=== PATIENT | male | born 1975 | race Caucasian/White ===

== ENCOUNTER → 2022-12-19 | Outpatient (CLI) | payer BC ==
[2022-12-19 14:17] LABS: HCT 46.4 % (39.6-50.0); HGB 15.5 g/dL (13.0-17.0); MCH 29.6 pg (27.0-32.0); MCHC 33.4 g/dL (32.0-37.0); MCV 88.5 fL (80.0-97.0); Mean Platelet Volume 11.2 fL (9.5-12.2); NRBC Per 100 WBC 0 /100 WBCS (0.0-0.0); Platelet Count 199 X 10*3/uL (140-440); RBC 5.24 X 10*6/uL (4.40-5.60); RDW 12.1 % (11.5-14.5); WBC 5.85 X 10*3/uL (4.50-10.00)
[2022-12-19 14:25] LABS: ALT 25 U/L (10-49); AST 22 U/L (14-35); Albumin 4.6 g/dL (3.8-4.9); Albumin/Globulin Ratio 1.54 (1.60-3.17); Alkaline Phosphatase 67 U/L (41-126); BUN/Creat Ratio 14.32 Ratio (12.00-20.00); Blood Urea Nitrogen 12.5 mg/dL (9.0-27.0); Calcium 9.5 mg/dL (8.7-10.3); Carbon Dioxide 30.1 mmol/L (20.0-27.5); Chloride 101 mmol/L (96-109); Chol/HDL Ratio 5.23 Ratio; Glucose 105 mg/dL (70-110); Non-African American GFR(CKD) 102.6 (60.0-200.0); Potassium 4.7 mmol/L (3.5-5.5); Sodium 139 mmol/L (135-145); Total Protein 7.5 g/dL (6.2-8.2); VLDL Calculation 17.42 mg/dL (5.00-40.00)
== END | disposition home or self-care (01) ==
LOC: LABWHC1 08:16
PROVIDERS: ATTEND Family Medicine
DX: Z00.00 Encounter for general adult medical examination without abnormal findings (principal)
CPT/HCPCS: 36415; 80053; 80061; 85027

== ENCOUNTER → 2023-12-25 | Outpatient (CLI) | payer BC ==
[2023-12-25 13:01] LABS: HCT 45.8 % (39.6-50.0); HGB 15.1 g/dL (13.0-17.0); MCH 29.1 pg (27.0-32.0); MCV 88.2 FL (80.0-97.0); Mean Platelet Volume 11.1 FL (9.5-12.2); NRBC Per 100 WBC 0 X 10*3/uL (0.00-0.01); Platelet Count 186 X 10*3/uL (140-440); RBC 5.19 X 10*6/uL (4.40-5.60); RDW 12.4 % (11.5-14.5); WBC 6.21 X 10*3/uL (4.50-10.00)
[2023-12-25 13:12] LABS: Chol/HDL Ratio 4.89 Ratio; LDL Cholesterol,Calculated 124.7 mg/dL (0.0-131.0); VLDL Calculation 17.68 mg/dL (5.00-40.00)
[2023-12-25 15:19] LABS: ALT 23 U/L (10-49); AST 21 U/L (14-35); Albumin 4.4 g/dL (3.8-4.9); Albumin/Globulin Ratio 1.57 Ratio (1.60-3.17); Alkaline Phosphatase 72 U/L (41-126); BUN/Creat Ratio 14.25 Ratio (12.00-20.00); Blood Urea Nitrogen 11.4 mg/dL (9.0-27.0); Calcium 9.7 mg/dL (8.7-10.3); Carbon Dioxide 27.8 mmol/L (21.6-31.8); Chloride 103 mmol/L (96-109); Globulin 2.8 g/dL (1.6-3.3); Glucose 111 mg/dL (70-110); Potassium 4.7 mmol/L (3.5-5.5); Sodium 141 mmol/L (135-145); Total Bilirubin 0.5 mg/dL (0.3-1.2); Total Protein 7.2 g/dL (6.2-8.2)
== END | disposition home or self-care (01) ==
LOC: LABWHC1 08:13
PROVIDERS: ATTEND Family Medicine
DX: Z00.00 Encounter for general adult medical examination without abnormal findings (principal)
CPT/HCPCS: 36415; 80053; 80061; 85027

== ENCOUNTER 2024-07-31 16:14 | Observation (INO) | payer BC, OTHER ==
--- NOTE | 2024-07-31 17:06 | ED ---
General Adult HPI - General Source: patient, RN notes reviewed Mode of arrival: ambulatory Limitations: no limitations <Shazia Haynes - Last Filed: 07/31/24 17:05> <Feng Carreno - Last Filed: 07/31/24 20:52> <Miguel Juárez - Last Filed: 07/31/24 21:39> - General Chief complaint: Abdominal Pain Stated complaint: Abdominal Pain Time Seen by Provider: 07/31/24 17:05 - History of Present Illness Initial comments: Quick note: 49-year-old male presents to the emergency department for evaluation of right lower quadrant abdominal pain. He notes that has been ongoing for around 2 weeks. He admits to nausea without vomiting. Denies any recent fever, chills. Reports normal bowel movements and urinary habits. (Shazia Haynes) - Related Data Allergies Allergy/AdvReac Type Severity Reaction Status Date / Time No Known Allergies Allergy Verified 07/31/24 17:04 Review of Systems ROS Other: All systems not noted in ROS Statement are negative. <Shazia Haynes - Last Filed: 07/31/24 17:05> ROS Other: All systems not noted in ROS Statement are negative. <Feng Carreno - Last Filed: 07/31/24 20:52> ROS Other: All systems not noted in ROS Statement are negative. <Miguel Juárez - Last Filed: 07/31/24 21:39> ROS Statement: Those systems with pertinent positive or pertinent negative responses have been documented in the HPI. Past Medical History History of Any Multi-Drug Resistant Organisms: None Reported Past Surgical History: Cholecystectomy Past Psychological History: No Psychological Hx Reported Smoking Status: Never smoker Past Alcohol Use History: Occasional Past Drug Use History: None Reported <Shazia Haynes - Last Filed: 07/31/24 17:05> General Exam Limitations: no limitations <Shazia Haynes - Last Filed: 07/31/24 17:05> General appearance: alert, in no apparent distress Head exam: Present: atraumatic, normocephalic Eye exam: Present: normal appearance, PERRL ENT exam: Present: normal exam Neck exam: Present: normal inspection. Absent: tenderness, meningismus Respiratory exam: Present: normal lung sounds bilaterally. Absent: respiratory distress, wheezes Cardiovascular Exam: Present: regular rate, normal rhythm GI/Abdominal exam: Present: soft, tenderness (Right lower quadrant). Absent: distended, guarding Extremities exam: Present: normal inspection, normal capillary refill Neurological exam: Present: alert, oriented X3, CN II-XII intact, normal gait. Absent: motor sensory deficit Psychiatric exam: Present: normal affect, normal mood Skin exam: Present: warm, dry, intact <Feng Carreno - Last Filed: 07/31/24 20:52> - General Exam Comments Initial Comments: Visual Physical Exam Vital signs reviewed General: Well-appearing, nontoxic, no acute distress. Head: Normocephalic, atraumatic Eyes: PERRLA, EOMI ENT: Airway patent Chest: Nonlabored breathing Skin: No visual rash, normal skin tone Neuro: Alert and oriented 3 Musculoskeletal: No gross abnormalities (Shazia Haynes) Course Vital Signs 07/31/24 17:00 Temperature 98.9 F Pulse Rate 107 H Respiratory 18 Rate Blood Pressure 134/84 O2 Sat by Pulse 99 Oximetry Medical Decision Making <Shazia Haynes - Last Filed: 07/31/24 17:05> - Lab Data Result diagrams: 07/31/24 19:26 07/31/24 19:26 <Feng Carreno - Last Filed: 07/31/24 20:52> - Lab Data Result diagrams: 07/31/24 19:26 07/31/24 19:26 <Miguel Juárez - Last Filed: 07/31/24 21:39> - Medical Decision Making Quick note preformed and electronically signed by Shazia Haynes PA-C (Shazia Haynes) Was pt. sent in by a medical professional or institution ([facility], CONTRACT ADMIN, urgent care, hospital, or [facility]...) When possible be specific @ -[No] Did you speak to anyone other than the patient for history (EMS, parent, family, police, friend...)? What history was obtained from this source @ -[No] Did you review nursing and triage notes (agree or disagree)? Why? @ -[I reviewed and agree with nursing and triage notes] Were old charts reviewed (outside hosp., previous admission, EMS record, old EKG, old radiological studies, urgent care reports/EKG's, [facility] records)? Report findings @ -[No old charts were reviewed] Differential Abdominal Pain Men: Appendicitis, cholecystitis, diverticulosis, ischemic bowel, pancreatitis, hepatitis, UTI, gastroenteritis, AAA, incarcerated hernia, bowel obstruction, constipation, inflammatory bowel, hepatitis, peptic ulcer disease, splenic infarction, perforated viscus, testicular torsion, this is not meant to be an all-inclusive list EKG interpreted by me (3pts min.). @ -[As above] X-rays interpreted by me (1pt min.). @ -[None done] CT interpreted by me (1pt min.). @ -[None done] U/S interpreted by me (1pt. min.). @ -[None done] What testing was considered but not performed or refused? (CT, X-rays, U/S, labs)? Why? @ -[None] What meds were considered but not given or refused? Why? @ -[None] Did you discuss the management of the patient with other professionals (professionals i.e. , PA, CONTRACT ADMIN, lab, RT, psych nurse, social and human services assistant, brick loader, teacher, special technical operations officer, case loader operator)? Give summary @ -[No] Was smoking cessation discussed for >3mins.? @ -[No] Was critical care preformed (if so, how long)? @ -[No] Were there social determinants of health that impacted care today? How? (Homelessness, low income, unemployed, alcoholism, drug addiction, transportation, low edu. Level, literacy, decrease access to med. care, usp, rehab)? @ -[No] Was there de-escalation of care discussed even if they declined (Discuss DNR or withdrawal of care, Hospice)? DNR status @ -[No] What co-morbidities impacted this encounter? (DM, HTN, Smoking, COPD, CAD, Cancer, CVA, ARF, Chemo, Hep., AIDS, mental health diagnosis, sleep apnea, morbid obesity)? @ -[None] Was patient admitted / discharged? Hospital course, mention meds given and route, prescriptions, significant lab abnormalities, going to OR and other pertinent info. @ -[hospital course] Undiagnosed new problem with uncertain prognosis? @ -[No] Drug Therapy requiring intensive monitoring for toxicity (Heparin, Nitro, Insulin, Cardizem)? @ -[No] Were any procedures done? @ -[No] Diagnosis/symptom? @ -[default] Acute, or Chronic, or Acute on Chronic? @ -[default] Uncomplicated (without systemic symptoms) or Complicated (systemic symptoms)? @ -[default] Side effects of treatment? @ -[No] Exacerbation, Progression, or Severe Exacerbation? @ -[No] Poses a threat to life or bodily function? How? (Chest pain, [place], [place], pneumonia, PE, COPD, DKA, ARF, appy, cholecystitis, CVA, Diverticulitis, Homicidal, Suicidal, threat to staff... and all critical care pts) @ -[No] (Feng Carreno) Patient care signed out to me by previous shift physician, Dr. Carreno., Patient is a 49-year-old male presents emergency department for abdominal pain. Laboratory evaluation obtained. Leukocytosis 11.0 Labs unremarkable. Patient denies any significant comorbidities. Plan at signout was to follow-up with pending CT imaging. CT performed showing uncomplicated acute appendicitis. Patient given antibiotics will be admitted. Case discussed with Dr. Lobo for admission (Miguel Juárez) - Lab Data Lab Results 07/31/24 07/31/24 07/31/24 Range/Units 19:26 19:26 19:26 WBC 11.0 H (3.8-10.6) k/uL RBC 5.32 (4.30-5.90) m/uL Hgb 15.9 (13.0-17.5) gm/dL Hct 47.1 (39.0-53.0) % MCV 88.5 (80.0-100.0) fL MCH 29.9 (25.0-35.0) pg MCHC 33.7 (31.0-37.0) g/dL RDW 12.5 (11.5-15.5) % Plt Count 227 (150-450) k/uL MPV 7.9 Neutrophils % 64 % Lymphocytes % 24 % Monocytes % 9 % Eosinophils % 2 % Basophils % 1 % Neutrophils # 7.0 (1.3-7.7) k/uL Lymphocytes # 2.6 (1.0-4.8) k/uL Monocytes # 0.9 (0-1.0) k/uL Eosinophils # 0.2 (0-0.7) k/uL Basophils # 0.1 (0-0.2) k/uL Sodium 140 (137-145) mmol/L Potassium 3.7 (3.5-5.1) mmol/L Chloride 100 (98-107) mmol/L Carbon Dioxide 29 (22-30) mmol/L Anion Gap 11 mmol/L BUN 12 (9-20) mg/dL Creatinine 0.71 (0.66-1.25) mg/dL Est GFR (CKD-EPI)AfAm >90 (>60 ml/min/1.73 sqM) Est GFR (CKD-EPI)NonAf >90 (>60 ml/min/1.73 sqM) Glucose 92 (74-99) mg/dL Plasma Lactic Acid Mike 1.0 (0.7-2.0) mmol/L Calcium 9.4 (8.4-10.2) mg/dL Total Bilirubin 0.9 (0.2-1.3) mg/dL AST 22 (17-59) U/L ALT 22 (4-49) U/L Alkaline Phosphatase 79 (38-126) U/L Total Protein 8.2 (6.3-8.2) g/dL Albumin 4.8 (3.5-5.0) g/dL Amylase 58 (30-110) U/L Lipase 61 (23-300) U/L Urine Color Urine Appearance (Clear) Urine pH (5.0-8.0) Ur Specific [place] (1.001-1.035) Urine Protein (Negative) Urine Glucose (UA) (Negative) Urine Ketones (Negative) Urine Blood (Negative) Urine Nitrite (Negative) Urine Bilirubin (Negative) Urine Urobilinogen (<2.0) mg/dL Ur Leukocyte Esterase (Negative) 07/31/24 Range/Units 19:59 WBC (3.8-10.6) k/uL RBC (4.30-5.90) m/uL Hgb (13.0-17.5) gm/dL Hct (39.0-53.0) % MCV (80.0-100.0) fL MCH (25.0-35.0) pg MCHC (31.0-37.0) g/dL RDW (11.5-15.5) % Plt Count (150-450) k/uL MPV Neutrophils % % Lymphocytes % % Monocytes % % Eosinophils % % Basophils % % Neutrophils # (1.3-7.7) k/uL Lymphocytes # (1.0-4.8) k/uL Monocytes # (0-1.0) k/uL Eosinophils # (0-0.7) k/uL Basophils # (0-0.2) k/uL Sodium (137-145) mmol/L Potassium (3.5-5.1) mmol/L Chloride (98-107) mmol/L Carbon Dioxide (22-30) mmol/L Anion Gap mmol/L BUN (9-20) mg/dL Creatinine (0.66-1.25) mg/dL Est GFR (CKD-EPI)AfAm (>60 ml/min/1.73 sqM) Est GFR (CKD-EPI)NonAf (>60 ml/min/1.73 sqM) Glucose (74-99) mg/dL Plasma Lactic Acid Mike (0.7-2.0) mmol/L Calcium (8.4-10.2) mg/dL Total Bilirubin (0.2-1.3) mg/dL AST (17-59) U/L ALT (4-49) U/L Alkaline Phosphatase (38-126) U/L Total Protein (6.3-8.2) g/dL Albumin (3.5-5.0) g/dL Amylase (30-110) U/L Lipase (23-300) U/L Urine Color Yellow Urine Appearance Clear (Clear) Urine pH 5.5 (5.0-8.0) Ur Specific [place] 1.017 (1.001-1.035) Urine Protein Negative (Negative) Urine Glucose (UA) Negative (Negative) Urine Ketones Trace H (Negative) Urine Blood Negative (Negative) Urine Nitrite Negative (Negative) Urine Bilirubin Negative (Negative) Urine Urobilinogen <2.0 (<2.0) mg/dL Ur Leukocyte Esterase Negative (Negative) Disposition <Shazia Haynes - Last Filed: 07/31/24 17:05> <Feng Carreno - Last Filed: 07/31/24 20:52> Decision Time: 21:39 <Miguel Juárez - Last Filed: 07/31/24 21:39> Clinical Impression: Acute appendicitis Disposition: ADMITTED IP TO THIS HOSP Condition: Fair Referrals: Kyler Queen MD [Primary Care Provider] - 1-2 days
[2024-07-31 19:39] LABS: Basophils # (A) 0.1 k/uL (0-0.2); Basophils % (A) 1 %; Eosinophils # (A) 0.2 k/uL (0-0.7); Eosinophils % (A) 2 %; HCT 47.1 % (39.0-53.0); HGB 15.9 gm/dL (13.0-17.5); Lymphocytes # (A) 2.6 k/uL (1.0-4.8); Lymphocytes % (A) 24 %; MCH 29.9 pg (25.0-35.0); MCHC 33.7 g/dL (31.0-37.0); MCV 88.5 fL (80.0-100.0); Mean Platelet Volume 7.9; Monocytes # (A) 0.9 k/uL (0-1.0); Monocytes % (A) 9 %; Neutrophils % (A) 64 %; Platelet Count 227 k/uL (150-450); RBC 5.32 m/uL (4.30-5.90); RDW 12.5 % (11.5-15.5)
[2024-07-31 19:51] LABS: ALT 22 U/L (4-49); AST 22 U/L (17-59); African American GFR (CKD) >90 (>60 ml/min/1.73 sqM); Albumin 4.8 g/dL (3.5-5.0); Alkaline Phosphatase 79 U/L (38-126); Amylase 58 U/L (30-110); Anion Gap 11 mmol/L; Blood Urea Nitrogen 12 mg/dL (9-20); Calcium 9.4 mg/dL (8.4-10.2); Carbon Dioxide 29 mmol/L (22-30); Chloride 100 mmol/L (98-107); Glucose 92 mg/dL (74-99); Lipase 61 U/L (23-300); Non-African American GFR(CKD) >90 (>60 ml/min/1.73 sqM); Potassium 3.7 mmol/L (3.5-5.1); Sodium 140 mmol/L (137-145); Total Bilirubin 0.9 mg/dL (0.2-1.3); Total Protein 8.2 g/dL (6.3-8.2)
[2024-07-31 20:20] LABS: Appearance,Urine Clear (Clear); Bilirubin,Urine Negative (Negative); Blood,Urine Negative (Negative); Color,Urine Yellow; Glucose,Urine (UA) Negative (Negative); Ketones,Urine Trace (Negative); Leukocyte Esterase,Urine Negative (Negative); Nitrite,Urine Negative (Negative); PH, Urine 5.5 (5.0-8.0); Protein,Urine Negative (Negative); Specific Gravity,Urine 1.017 (1.001-1.035); Urobilinogen,Urine <2.0 mg/dL (<2.0)
--- NOTE | 2024-07-31 21:21 | CT ---
INDICATION: Patient age:Male; 49 years old; Reason for study: RLQ pain; PHH. COMPARISON: None. TECHNIQUE: Standard CT of the abdomen and pelvis following the administration of 100 cc of Isovue 3 00 IV contrast material. Coronal and sagittal reformats were performed. One or more CT dose reduction strategies were utilized during this examination. Total DLP administered was 1852.4 mGycm. FINDINGS: LOWER CHEST: Unremarkable ABDOMEN LIVER: Unremarkable. GALLBLADDER AND BILE DUCTS: The gallbladder is surgically absent. PANCREAS: Unremarkable. SPLEEN: Unremarkable. ADRENAL GLANDS: Unremarkable. KIDNEYS AND URETERS: No evidence of hydronephrosis or renal calculus. The ureters are unremarkable. PELVIS URINARY BLADDER: Incompletely distended but grossly unremarkable. REPRODUCTIVE: Unremarkable. ABDOMEN & PELVIS STOMACH AND BOWEL: Stomach is grossly unremarkable. Small bowel is of normal caliber. There is notabl e fat stranding seen at the proximal aspect of the cecum/ascending colon and appears to be surroundin g the appendix which is poorly delineated. There is no surrounding pneumoperitoneum. There are a few mildly prominent lymph nodes. No organized fluid collection at this time. No evidence of bowel obstru ction. PERITONEUM: No evidence of pneumoperitoneum or free fluid. VASCULATURE: No aneurysmal changes. MUSCULOSKELETAL: No acute osseous abnormality. LYMPH NODES: Few scattered lymph nodes are seen in the right lower quadrant of the abdomen and mid ab dominal mesentery. SOFT TISSUE/ABDOMINAL WALL: Unremarkable IMPRESSION: Findings are concerning for acute uncomplicated appendicitis. Critical findings were discussed with by Dr. Barr by Dr. Fuentes over the phone at 9:18 PM on . [facility], , 07/31/2024 9:19 PM
[2024-07-31] MEDS ORDERED: NALOXONE 0.4 MG/ML 1 ML VIAL IV PRN (21:39)
[2024-07-31] MEDS: PIPERACILLIN-TAZOBACTAM 3.375 GM in SODIUM CHLORIDE 0.9% 100 ML IVPB SCH (21:57)
[2024-07-31] MEDS: SODIUM CHLORIDE 0.9% 1,000 ML IV SCH (21:58)
[2024-07-31] MEDS ORDERED: METOCLOPRAMIDE 5 MG/ML 2 ML VIAL IVP PRN (22:29)
[2024-08-01] MEDS: KETOROLAC 15 MG/ML 1 ML VIAL IVP SCH (01:23)
[2024-08-01] MEDS: ACETAMINOPHEN IV (For NPO) 1,000 MG in EMPTY BAG 1 BAG IVPB SCH (01:23)
[2024-08-01] MEDS: SODIUM CHLORIDE 0.9% 2,000 ML IV ONE (02:29)
[2024-08-01] MEDS: HEPARIN SODIUM,PORCINE 5,000 UNIT/ML 1 ML VIAL SQ SCH (08:48)
[2024-08-01] MEDS: PANTOPRAZOLE 40 MG/10 ML VIAL IV SCH (08:48)
[2024-08-01 10:47] LABS: Basophils # (A) 0.06 X 10*3/uL (0.00-0.10); Basophils % (A) 0.8 %; Eosinophils # (A) 0.21 X 10*3/uL (0.04-0.35); Eosinophils % (A) 2.7 %; HGB 13.3 g/dL (13.0-17.0); Lymphocytes # (A) 2.09 X 10*3/uL (0.90-5.00); Lymphocytes % (A) 27.2 %; MCH 29.5 pg (27.0-32.0); MCHC 33.3 g/dL (32.0-37.0); MCV 88.7 FL (80.0-97.0); Mean Platelet Volume 11.2 FL (9.5-12.2); Monocytes # (A) 1.17 X 10*3/uL (0.20-1.00); Monocytes % (A) 15.3 %; NRBC Per 100 WBC 0 X 10*3/uL (0.00-0.01); Neutrophils # (A) 4.11 X 10*3/uL (1.80-7.70); Neutrophils % (A) 53.6 %; Platelet Count 190 X 10*3/uL (140-440); RBC 4.51 X 10*6/uL (4.40-5.60); RDW 12.2 % (11.5-14.5); WBC 7.67 X 10*3/uL (4.50-10.00)
--- NOTE | 2024-08-01 10:51 | P.GSCN ---
History of Present Illness Consult date: 08/01/24 History of present illness: CHIEF COMPLAINT: Abdominal pain HISTORY OF PRESENT ILLNESS: This is a 49-year-old male who presented to the hospital with right lower quadrant abdominal pain. Patient reports she has had pain intermittently in the right lower quadrant for about 2 weeks. Patient reports that the pain sometimes would go across the lower abdomen. He denies any nausea or vomiting. Denies any fever chills or sweats. He is complaining of a headache. CT scan abdomen pelvis had reported evidence of acute appendicitis. Past surgical history includes cholecystectomy. Patient denies any cardiac history. PAST MEDICAL HISTORY: See below PAST SURGICAL HISTORY: See below MEDICATIONS: See below ALLERGIES: See below SOCIAL HISTORY: No illicit drug use. REVIEW OF SYSTEMS: CONSTITUTIONAL: Denies fever or chills. HEENT: Denies blurred vision, vision changes, or eye pain. Denies hemoptysis CARDIOVASCULAR: Denies chest pain or pressure. RESPIRATORY: No shortness of breath. GASTROINTESTINAL: See HPI for pertinent findings HEMATOLOGIC: Denies bleeding disorders. GENITOURINARY: Denies any blood in urine or increased urinary frequency. SKIN: Denies pruitis. Denies rash. PHYSICAL EXAM: VITAL SIGNS: Reviewed GENERAL: Well-developed in no acute distress. HEENT: No sclera icterus. Extraocular movements grossly intact. Moist buccal mucosa. Head is atraumatic, normocephalic. No nasal drainage. ABDOMEN: Soft. Nondistended. Mild discomfort with palpation in the right lower quadrant. No guarding. No rebound tenderness. NEUROLOGIC: Alert and oriented. Cranial nerves II through XII grossly intact. LABORATORY DATA: WBC 11 down to 7.67 Hgb 13.3 platelets 190 Sodium 140 potassium 3.7 creatinine 0.71 IMAGING: CT scan abdomen pelvis reports findings are concerning for acute uncomplicated appendicitis ASSESSMENT: 1. Acute appendicitis PLAN: -Patient scheduled for Robotic appendectomy today with Dr. Lobo -Keep patient n.p.o. -Continue antibiotics -Continue IV fluids -Continue pain management Physician Pediatric Dental Assistant note has been reviewed by physician. Signing provider agrees with the documented findings, assessment, and plan of care. Please see additional documentation below CHIEF COMPLAINT: Right lower quadrant abdominal pain. HISTORY OF PRESENT ILLNESS: The patient is a 49-year-old male who presents a history of at least 3+ weeks of lower abdominal pain. Patient denies taking any antibiotics. He denies any fevers. Denies any chills. He only reports his pain was worse with movement however still mild. Patient had reports the pain got worse Wednesday, 3 days ago and hence his presentation to the hospital. His surgical history is pertinent for prior cholecystectomy. PAST MEDICAL HISTORY: See list and reviewed PAST SURGICAL HISTORY: See list and reviewed MEDICATIONS: See list and reviewed ALLERGIES: See list and reviewed SOCIAL HISTORY: See list and reviewed FAMILY HISTORY: See list and reviewed REVIEW OF ORGAN SYSTEMS: CONSTITUTIONAL: No fevers or chills. No recent weight loss. EYES: Denies any trouble with vision. No glasses. HEENT: No difficulties with hearing. No nosebleeds. No difficulty swallowing. RESPIRATORY: Denies pneumonia. Denies any troubles with breathing or dyspnea on exertion. CARDIOVASCULAR: Denies any chest pain, palpitations, or recent heart attacks. GASTROINTESTINAL: Has gastroesophageal reflux disease. GENITOURINARY: Denies any blood in urine or increased urinary frequency. NEUROLOGICAL: Denies any numbness or tingling along the distal extremities. No seizure disorders or headaches. MUSCULOSKELETAL: Denies any back pain, stiffness or joint arthritis. SKIN: No current skin cancer. No rash. PSYCHIATRIC: Denies current depression or suicidal thoughts. ENDOCRINE: Denies current thyroid disorders. Denies any blood sugar glucose intolerance. HEME/LYMPHATIC: Denies any lumps and bumps around the neck. No recent deep venous thrombosis. ALLERGY/IMMUNOLOGY: No immunoglobulin therapy. No immune deficiencies. BREAST: Denies current breast lumps, pain or nipple discharge. PHYSICAL EXAM: VITALS: Reviewed CONSTITUTIONAL: Well developed and in no acute distress. EYES: Conjuctivae without sclera icterus. Extraocular movements grossly intact. HEAD, EARS, NOSE, THROAT: Moist buccal mucosa. Head is atraumatic, normocephalic. Hears conversational speech. No nasal drainage. NECK: Supple. No JV distention. No thyroidomegaly. RESPIRATORY: Non-labored respirations and equal bilateral excursions. No gross wheezes. CARDIOVASCULAR: Palpable 2+ radial pulses. ABDOMEN: No peritonitis. Tenderness right lower quadrant. LYMPH: No neck lymphadenopathy. MUSCULOSKELETAL: No clubbing cyanosis or edema SKIN: Warm and well perfused with good skin turgor. NEUROLOGIC: Cranial nerves II through XII grossly intact. No focal or lateral izing signs. PSYCH: Appropriate affect. Alert and oriented to person, place and time. Displays appropriate insight. CLINCAL LABS: Reviewed. WBC elevated over 11,000. IMAGING: Independently reviewed. CT of the abdomen pelvis reviewed demonstrates large inflammatory mass of the right lower quadrant difficult to identify as appendicitis versus phlegmon from prior rupture. This is my independent interpretation. RADIOLOGY: Report reviewed demonstrating appendicitis on CT scan. RECORDS: No prior hospitalizations at the facility found ASSESSMENT: 1. Acute appendicitis with leukocytosis 2. Gastroesophageal reflux disease 3. Abnormal CT scan for neoplasm versus phlegmon/appendicitis PLAN: 1. IV fluid hydration. 2. Scheduled Toradol and Tylenol for pain management and inflammation 3. Scheduled antibiotics, Zosyn started 4. Due to the presentation of his abdominal pain of several weeks, questionable likelihood of chronic appendicitis versus additional etiology were reviewed. As the availability of the operating room is minimal, patient opted for continued antibiotic management with anticipated surgical intervention tomorrow ADVANCE DIRECTIVE: CODE STATUS in chart Past Medical History History of Any Multi-Drug Resistant Organisms: None Reported Past Surgical History: Cholecystectomy Past Psychological History: No Psychological Hx Reported Smoking Status: Never smoker Past Alcohol Use History: Occasional Past Drug Use History: None Reported - Past Family History Father History Unknown: Yes Mother Family Medical History: Diabetes Mellitus Brother(s) Family Medical History: Cancer, Diabetes Mellitus Additional Family Medical History / Comment(s): unsure which type of cancer Medications and Allergies Home Medications Medication Instructions Recorded Confirmed Type Omeprazole Magnesium [PriLOSEC OTC] 20 mg PO DAILY 08/01/24 08/01/24 History Allergies Allergy/AdvReac Type Severity Reaction Status Date / Time No Known Allergies Allergy Verified 08/01/24 10:32 Surgical - Exam Vital Signs Temp Pulse Resp BP Pulse Ox 98.9 F 107 H 18 134/84 99 07/31/24 17:00 07/31/24 17:00 07/31/24 17:00 07/31/24 17:00 07/31/24 17:00 Results - Labs 08/01/24 06:12 07/31/24 19:26 Abnormal Lab Results - Last 24 Hours (Table) 07/31/24 07/31/24 08/01/24 Range/Units 19:26 19:59 06:12 WBC 11.0 H (3.8-10.6) k/uL Monocytes # 1.17 H (0.20-1.00) X 10*3/uL Urine Ketones Trace H (Negative) Diabetes panel 07/31/24 Range/Units 19:26 Sodium 140 (137-145) mmol/L Potassium 3.7 (3.5-5.1) mmol/L Chloride 100 (98-107) mmol/L Carbon Dioxide 29 (22-30) mmol/L BUN 12 (9-20) mg/dL Creatinine 0.71 (0.66-1.25) mg/dL Glucose 92 (74-99) mg/dL Calcium 9.4 (8.4-10.2) mg/dL AST 22 (17-59) U/L ALT 22 (4-49) U/L Alkaline Phosphatase 79 (38-126) U/L Total Protein 8.2 (6.3-8.2) g/dL Albumin 4.8 (3.5-5.0) g/dL Calcium panel 07/31/24 Range/Units 19:26 Calcium 9.4 (8.4-10.2) mg/dL Albumin 4.8 (3.5-5.0) g/dL Pituitary panel 07/31/24 Range/Units 19:26 Sodium 140 (137-145) mmol/L Potassium 3.7 (3.5-5.1) mmol/L Chloride 100 (98-107) mmol/L Carbon Dioxide 29 (22-30) mmol/L BUN 12 (9-20) mg/dL Creatinine 0.71 (0.66-1.25) mg/dL Glucose 92 (74-99) mg/dL Calcium 9.4 (8.4-10.2) mg/dL Adrenal panel 07/31/24 Range/Units 19:26 Sodium 140 (137-145) mmol/L Potassium 3.7 (3.5-5.1) mmol/L Chloride 100 (98-107) mmol/L Carbon Dioxide 29 (22-30) mmol/L BUN 12 (9-20) mg/dL Creatinine 0.71 (0.66-1.25) mg/dL Glucose 92 (74-99) mg/dL Calcium 9.4 (8.4-10.2) mg/dL Total Bilirubin 0.9 (0.2-1.3) mg/dL AST 22 (17-59) U/L ALT 22 (4-49) U/L Alkaline Phosphatase 79 (38-126) U/L Total Protein 8.2 (6.3-8.2) g/dL Albumin 4.8 (3.5-5.0) g/dL
[2024-08-01] MEDS: LACTATED RINGERS 1,000 ML IV SCH (20:21)
[2024-08-02] MEDS ORDERED: HYDROmorphone 0.5 MG/0.5 ML SYRINGE IVP PRN (07:00)
[2024-08-02] MEDS: IV FLUID CONTINUATION 500 ML IV ONE (08:36)
[2024-08-02] MEDS: ONDANSETRON 4 MG/2 ML VIAL IVP PRN (08:43)
[2024-08-02] MEDS: DEXAMETHASONE SOD PHOSPHATE 4 MG/ML 1 ML VIAL IVP STA (08:44)
[2024-08-02] MEDS: FAMOTIDINE 20 MG/2 ML VIAL IV STA (08:48)
[2024-08-02] MEDS: ACETAMINOPHEN TAB 500 MG TAB PO STA (09:55)
--- NOTE | 2024-08-02 10:03 | P.PN ---
Progress Note - Text Progress Note Date: 08/01/24 Patient seen with provider with scheduled for surgery tomorrow
[2024-08-02] MEDS ORDERED: HYDROmorphone (PF) 1 MG/ML ONE (10:09)
[2024-08-02] MEDS ORDERED: ROCURONIUM 10 MG/ML (5 ML VIAL) IV ONE (10:09)
[2024-08-02] MEDS ORDERED: SUCCINYLCHOLINE CHLORIDE 200 MG/10 ML VIAL IV ONE (10:09)
[2024-08-02] MEDS ORDERED: MIDAZOLAM 2 MG/2 ML VIAL ONE (10:09)
[2024-08-02] MEDS ORDERED: PROPOFOL 10 MG/ML 20 ML VIAL IV ONE (10:09)
[2024-08-02] MEDS ORDERED: NEOSTIGMINE 1 MG/ML 10 ML VIAL ONE (10:09)
[2024-08-02] MEDS ORDERED: fentaNYL (PF) 50 MCG/ML 2 ML AMP ONE (10:09)
[2024-08-02] MEDS ORDERED: LIDOCAINE 1% INJ 10MG/ML (20 ML MDV) ONE (10:09)
[2024-08-02] MEDS ORDERED: KETOROLAC 15 MG/ML 1 ML VIAL ONE (10:09)
[2024-08-02] MEDS ORDERED: GLYCOPYRROLATE 0.2 MG/ML 2 ML VIAL ONE (10:09)
[2024-08-02] MEDS: LIDOCAINE 2%-EPI 1:100,000 20 ML VIAL SQ ONE (10:37)
[2024-08-02] MEDS: LACTATED RINGERS 1,000 ML IV ONE (10:54)
--- NOTE | 2024-08-02 14:15 | P.OP ---
Date of Procedure: 08/02/24 Description of Procedure: SURGEON: CRYSTAL MARINELLI MD Preoperative Diagnosis: 1. Acute appendicitis 2. Gastroesophageal reflux disease 3. Obesity due to excess calories, BMI 33.2 Postoperative Diagnosis: 1. Acute appendicitis with phlegmon 2. Gastroesophageal reflux disease 3. Obesity due to excess calories, BMI 33.2 Procedure(s) Performed: 1. Robotic-assisted daVinci Xi laparoscopic appendectomy Anesthesia: GETA, local Estimated Blood Loss (ml): 5 Pathology: other (appendix) Condition: stable Disposition: floor Operative Findings: 1. Acute appendicitis with localized phlegmon 2. Inflammatory changes at base of the cecum INDICATIONS: The patient is a 49-year-old male who presents with acute appendicitis per CT scan. Benefits and risks, including infection, open surgery, and bleeding for additional surgery was discussed at length. Informed consent was obtained. All questions of the patient and family were answered. DESCRIPTION: The patient was transferred to the operating room and placed in supine position. The patient had previously voided. The abdomen was then prepped and draped in standard sterile fashion as Ioban was placed along the abdomen to minimize any contamination of skin floor. After a timeout protocol was performed, attention was then brought to the left upper quadrant whereby a 0 degree 5 mm laparoscopic trocar entry was performed. The abdominal cavity was entered and insufflated to 12 mmHg pressure, which was tolerated well. Diagnostic laparoscopy demonstrated no injury to bowel, viscera or mesentery. Localized minimal turbid fluid was identified along the right lower quadrant. Next a robotic 8-mm trocar was placed along the left lower quadrant, 10-cm lateral to the midline. A 12 mm port was placed along the left upper quadrant and another 8-mm port left lateral abdominal wall. Ports were placed 8 cm apart from each other including 15-20 cm away from the target anatomy of the right pelvis. The patient was then placed in Trendelenburg position, at least 7 down and right side up at least 7. The robotic da Oni XI system was primed and docked from the left side of the patient. Using atraumatic graspers and vessel sealer, the robotic system was docked and primed as described. Instruments were interchanged by the assistant strength coach including graspers, robotic stapler and vessel sealer. Next, attention was brought to identify the cecum. The appendix was not well- visualized as moderate inflammatory changes with phlegmon was found incorporating the base of the cecum including the terminal ileum with additional dissection required lysis of adhesions for over 50% of the case. A systematic view within the abdominal cavity was started with the small bowel which was unremarkable. The appendix was retrocecal coursing towards right upper quadrant behind the ascending colon with additional dissection required. No clear planes between the appendix and mesoappendix was identified. After moderate mobilization of the appendiceal structure with phlegmon, resection of the appendix was prepared. Multiple fires including black staple load, green staple loads 45 mm robotic staple loads were used to resect the appendix to healthy tissue incorporating the distal aspect of the cecum. The staple line was hemostatic. Hemostasis was checked prior to undocking the robot. The robot was undocked. I re-scrubbed into the case. The size of the specimen was moderately enlarged over 5 x 9 cm incorporating the appendix. As a result of the left upper quadrant incision was widened to at least 3.5 cm. The specimen was removed from the abdominal cavity with an Endo Catch bag through the 12 mm trocar at the left upper quadrant. Jake-Fanta 0 Vicryl was placed for closure of the fascia. All instruments and pneumoperitoneum were evacuated from the abdominal cavity. Local anesthetic was infiltrated to all wounds for postop analgesia. All incisions were also cleansed with diluted hydrogen peroxide. The incisions were closed with 4-0 Monocryl. Exofin glue was applied to the rest of the skin incisions. Optifoam dressing was placed at the specimen site including abdominal binder. The patient had tolerated the procedure well. The patient was extubated successfully. The patient was transferred to the postanesthesia care unit in stable condition.
[2024-08-02] MEDS: HYDROmorphone 1 MG/ML 1 ML SYRINGE IVP PRN (14:24)
--- NOTE | 2024-08-02 14:39 | P.DS ---
Providers Date of admission: 07/31/24 21:40 Expected date of discharge: 08/02/24 Attending physician: Beronica Lobo [facility] Course: Postoperative Diagnosis: 1. Acute appendicitis with phlegmon 2. Gastroesophageal reflux disease 3. Obesity due to excess calories, BMI 33.2 COURSE: The patient is a 49-year-old male who presented with 3-week history of lower abdominal pain. Incidentally, patient presented to the emergency room after worsening pain for [address] scan demonstrated possible appendicitis. He underwent appendectomy with features of a large phlegmonous changes involving his appendix which is moderately dilated by 5 x 8 cm. Postoperatively, pain was well-controlled. Discharge instructions were reviewed in detail and patient was stable for home. Close outpatient follow-up with his primary care provider was also addressed including at least 2 weeks of recovery in the interim. Procedures: Procedure(s) Performed: 1. Robotic-assisted daVinci Xi laparoscopic appendectomy Anesthesia: GETA, local Estimated Blood Loss (ml): 5 Pathology: other (appendix) Condition: stable Disposition: floor Operative Findings: 1. Acute appendicitis with localized phlegmon 2. Inflammatory changes at base of the cecum Patient Condition at Discharge: Fair Plan - Discharge Summary Discharge Rx Participant: No New Discharge Prescriptions: New Simethicone [Gas-X] 125 mg PO AC-TID PRN #20 capsule PRN Reason: Pain Ibuprofen [Motrin] 600 mg PO Q8HR PRN #30 tab PRN Reason: Pain Acetaminophen Tab [Tylenol Tab] 1,000 mg PO Q6HR PRN #30 tablet PRN Reason: Pain Continue Omeprazole Magnesium [PriLOSEC OTC] 20 mg PO DAILY Discharge Medication List Omeprazole Magnesium [PriLOSEC OTC] 20 mg PO DAILY 08/01/24 [History] Acetaminophen Tab [Tylenol Tab] 1,000 mg PO Q6HR PRN #30 tablet 08/02/24 [Rx] Ibuprofen [Motrin] 600 mg PO Q8HR PRN #30 tab 08/02/24 [Rx] Simethicone [Gas-X] 125 mg PO AC-TID PRN #20 capsule 08/02/24 [Rx] Follow up Appointment(s)/Referral(s): Kyler Queen MD [Primary Care Provider] - 1-2 days Beronica Lobo MD [STAFF PHYSICIAN] - 08/22/24 6:00 pm (Telehealth) Patient Instructions/Handouts: Appendicitis (GEN), Laparoscopic Appendectomy (DC) Activity/Diet/Wound Care/Special Instructions: TELEHEALTH - DR WILL CALL YOU BETWEEN 9 am to 8 pm NO LONG DRIVES OR AIRPLANE RIDES OVER 60 MINUTES FOR THE NEXT 2 WEEKS, 08/16/24, DUE TO HIGH RISK OF PULMONARY EMBOLISM/DVTs May drive in 72 hrs, 08/05/24 No lifting over 10 pounds in 2 weeks until 08/16/24 May shower. No bath tub soaks for two weeks until 08/16/24 Diet as tolerated. Use Tylenol, simethicone and ibuprofen or Aleve scheduled for the next 24-48 hours for best pain relief. Use ice along incisions for today to prevent swelling. Discharge Disposition: HOME SELF-CARE
[2024-08-02] MEDS: SCOPOLAMINE 1 MG/72 HR PATCH TRANSDERM SCH (18:07)
--- NOTE | 2024-08-02 20:22 | P.PN ---
Progress Note - Text Progress Note Date: 08/02/24 Notified that patient continues to have moderate to significant nausea despite scopolamine patch. Discharge held. Will prescribe additional antiemetics including nonnarcotic pain medication.
[2024-08-02] MEDS: SIMETHICONE 40 MG/0.6 ML DROPS 2,000 MG/30 ML BOTTLE PO SCH (21:20)
[2024-08-02] MEDS: METOCLOPRAMIDE 5 MG/ML 2 ML VIAL IVP SCH (21:24)
[2024-08-02] MEDS: DEXAMETHASONE SOD PHOSPHATE 10 MG/ML 1 ML VIAL IVP STA (21:28)
[2024-08-02] MEDS: SODIUM CHLORIDE 0.9% 2,000 ML IV ONE (21:33)
[2024-08-02] MEDS: MAGNESIUM SULFATE-D5W PMX 1 GM in DEXTROSE/WATER 1 100ML.BAG IVPB SCH (22:17)
[2024-08-03] MEDS: PIPERACILLIN-TAZOBACTAM 3.375 GM in SODIUM CHLORIDE 0.9% 100 ML IVPB SCH (02:23)
[2024-08-03] MEDS: ONDANSETRON 4 MG/2 ML VIAL IVP SCH (04:27)
[2024-08-03 07:53] VITALS: BP 111/67; PULSE 96; RESP 18; TEMP 98.1
[2024-08-03] MEDS: IBUPROFEN 600 MG TAB PO STA (11:23)
--- NOTE | 2024-08-03 11:31 | P.PN ---
Subjective Progress Note Date: 08/03/24 CHIEF COMPLAINT: Right lower quadrant abdominal pain HISTORY OF PRESENT ILLNESS: The patient is a 49-year-old male status post appendectomy with lysis of adhesions due to phlegmon. Clinically, patient is doing better today. He had significant postop nausea and vomiting requiring Reglan 10 mg scheduled, Decadron 10 mg one-time dose, Zofran 4 mg scheduled, 2 L normal saline IV fluid bolus, and scopolamine patch. Today, patient reports he is feeling better. Pain is tolerable. REVIEW OF ORGAN SYSTEMS: No fevers or chills. No gastroesophageal reflux disease. PHYSICAL EXAM: VITALS: Reviewed CONSTITUTIONAL: Well developed and in no acute distress. EYES: Conjuctivae without sclera icterus. Extraocular movements grossly intact. HEAD, EARS, NOSE, THROAT: Moist buccal mucosa. Head is atraumatic, normocephalic. Hears conversational speech. No nasal drainage. RESPIRATORY: Non-labored respirations and equal bilateral excursions. No gross wheezes. CARDIOVASCULAR: Palpable 2+ radial pulses. ABDOMEN: Dressing intact. MUSCULOSKELETAL: No clubbing cyanosis or edema SKIN: Warm and well perfused with good skin turgor. NEUROLOGIC: Cranial nerves II through XII grossly intact. No focal or lateralizing signs. PSYCH: Appropriate affect. Alert and oriented to person, place and time. Di splays appropriate insight. CLINCAL LABS: Reviewed. WBC normal. ASSESSMENT: 1. Acute appendicitis with leukocytosis 2. Gastroesophageal reflux disease 3. Abnormal CT scan for neoplasm versus phlegmon/appendicitis 4. Postop nausea and vomiting 5. Appendicitis with phlegmon PLAN: 1. Patient stable for discharge however given the extent of his surgery including removal of an extremely large mass of the appendix, extent of recovery at least 2 weeks or more was described prior to return to work. 2. Discharge instructions were verbalized and all questions were addressed. 3. Patient advised to access his my [employer] for records 4. Outpatient follow-up with his PCP also advised as I will be unavailable in the office until August 22 Objective - Vital Signs Vital signs: Vital Signs Temp 98.1 F 08/03/24 07:00 Pulse 96 08/03/24 07:00 Resp 18 08/03/24 08:00 BP 111/67 08/03/24 07:00 Pulse Ox 94 L 08/03/24 07:00 FiO2 Intake & Output 08/02/24 08/03/24 08/03/24 18:59 06:59 18:59 Intake Total 800 Output Total 5 Balance 795 Intake: IV 800 Output: Estimated Blood Loss 5 Other: Voiding Method Toilet Toilet Toilet # Voids 1 2 - Labs CBC & Chem 7: 08/01/24 06:12 07/31/24 19:26
== END 2024-08-03 11:35 | disposition home or self-care (01) ==
LOC: EC 16:14 → 6NMEDSUR 21:40 → INTOOBSV 21:40 → 6NMEDSUR 22:22
PROVIDERS: ADMIT Surgery Plastic and Reconstructive Surgery; ATTEND Surgery Plastic and Reconstructive Surgery
DX: K35.33 Acute appendicitis with perforation, localized peritonitis, and gangrene, with abscess (principal); D72.829 Elevated white blood cell count, unspecified; R11.2 Nausea with vomiting, unspecified; K21.9 Gastro-esophageal reflux disease without esophagitis; E66.09 Other obesity due to excess calories; Z68.33 Body mass index [BMI] 33.0-33.9, adult
CPT/HCPCS: 44970; S2900; 36415; 74177; 80053; 81003; 82150; 83605; 83690; 85025; 88304; 96365; 96366; 96367; 96372; 96374; 96375; 96376; 99285